=== PATIENT | male | born 1935 | race Caucasian/White ===

== ENCOUNTER 2018-04-29 00:13 | Emergency (ER) | payer MEDICARE, BC ==
[2018-04-29 00:25] VITALS: BP 165/78
--- NOTE | 2018-04-29 00:34 | ED ---
Neurological HPI - HPI Summary HPI Summary: This is [facility] Familia Mckay documenting for attending Dr. Ramakrishna Toney MD. A 82 y/o male BIBA presents to ED s/p right-sided weakness. As per triage, "per ems, (R) sided deficit w/(R)sided facial droop, not speaking, unable to move (R ) side.. initial glucose 130's.. just correctional captain glucose 50's, ems gave D50..". As per EMS, patient's girlfriend called due to the sudden right-sided weakness. Upon EMS arrival, patient had right-sided hemiparesis. Upon arrival to ED, patient was back to baseline. Pt was a terrible historian. LEVEL 5 CAVEAT. - History of Current Complaint Stated Complaint: WEAKNESS Time Seen by Provider: 04/29/18 00:15 Hx Obtained From: EMS Hx From Patient Unobtainable Due To: Other - Terrible historian. Onset/Duration: Sudden Onset, Resolved PMH/Surg Hx/FS Hx/Imm Hx - Family History Known Family History: Positive: Unknown - Terrible historian Review of Systems Negative: Fever All Other Systems Reviewed And Are Negative: No Physical Exam - Summary Physical Exam Summary: VITAL SIGNS: Reviewed. GENERAL: Patient is a well-developed and nourished male who is lying comfortable in the stretcher. Patient is not in any acute respiratory distress. Normal exam. HEAD AND FACE: No signs of trauma. No ecchymosis, hematomas or skull depressions. No sinus tenderness. EYES: PERRLA, EOMI x 2, No injected conjunctiva, no nystagmus. EARS: Hearing grossly intact. Ear canals and tympanic membranes are within normal limits. MOUTH: Oropharynx within normal limits. NECK: Supple, trachea is midline, no adenopathy, no JVD, no carotid bruit, no c- spine tenderness, neck with full ROM. CHEST: Symmetric, no tenderness at palpation LUNGS: Clear to auscultation bilaterally. No wheezing or crackles. CVS: Regular rate and rhythm, S1 and S2 present, no murmurs or gallops appreciated. ABDOMEN: Soft, non-tender. No signs of distention. No rebound no guarding, and no masses palpated. Bowel sounds are normal. EXTREMITIES: FROM in all major joints, no edema, no cyanosis or clubbing. NEURO: Alert and oriented x 3. No acute neurological deficits. Speech is normal and follows commands. SKIN: Dry and warm Triage Information Reviewed: Yes Vital Signs Reviewed: Yes Course/Dx - Course Course Of Treatment: A 82 y/o male VIPUL presents to ED s/p right-sided weakness. Patient has history of DM. EMS was called by girlfriend who noticed sudden right-sided weakness. Upon EMS arrival, the patient had right-soded hemiparesis. Upon arrival to ED, patient was neurologically intact, alert and oriented x3. Patient exam was normal. Patient refused treatment and requests to sign-out AMA. Patient understands the consequences of leaving AMA. Patient will be discharged AMA with a diagnosis of TIA. Patient is to follow up with PCP tomorrow. Pt is agreeable with this plan. - Diagnoses Provider Diagnoses: TIA (transient ischemic attack) Discharge - Sign-Out/Discharge Documenting (check all that apply): Patient Departure - DISCHARGE - AMA - Discharge Plan Condition: Stable Disposition: AGAINST MEDICAL ADVICE Additional Instructions: FOLLOW UP WITH PRIMARY CARE TOMORROW. RETURN TO ED FOR ANY NEW OR WORSENING SYMPTOMS.
== END 2018-04-29 02:53 | disposition left against medical advice (07) ==
LOC: ED 00:13
DX: G45.9 Transient cerebral ischemic attack, unspecified (principal); G81.91 Hemiplegia, unspecified affecting right dominant side; E11.9 Type 2 diabetes mellitus without complications; Z53.21 Procedure and treatment not carried out due to patient leaving prior to being seen by health care provider
CPT/HCPCS: 99283